=== PATIENT | male | born 1985 | race Hispanic/Latino ===

== ENCOUNTER 2016-12-16 21:55 | Emergency (ER) | payer OTHER ==
[~2016-12-16] VITALS: Ht 160 cm; Wt 90.0 kg
[2016-12-16 23:10] VITALS: BP 135/70
== END 2016-12-16 23:10 | disposition designated cancer center or children's hospital (05) | DRG 605 ==
LOC: ED 21:55
DX: S61.250A Open bite of right index finger without damage to nail, initial encounter (principal); W59.11XA Bitten by nonvenomous snake, initial encounter; Y92.149 Unspecified place in prison as the place of occurrence of the external cause